=== PATIENT | male | born 1940 | race Caucasian/White ===

== ENCOUNTER 2022-01-27 08:53 | Outpatient (CLI) | payer MEDICARE ==
[2022-01-27 10:29] LABS: ALBUMIN 4.3 g/dL (3.2-5.5); ALBUMIN/GLOBULIN RATIO 1.2 (1.0-2.2); BILIRUBIN,TOTAL 1.1 mg/dL (0.2-1.0); CALCIUM 9.3 mg/dL (8.5-10.3); CREATININE 0.9 mg/dL (0.6-1.2); POTASSIUM 4.4 mmol/L (3.5-5.0); TOTAL PROTEIN 7.8 g/dL (6.7-8.2)
== END 2022-01-27 08:54 | disposition home or self-care (01) ==
LOC: LAB 08:53
PROVIDERS: ATTEND Family Medicine
DX: E78.2 Mixed hyperlipidemia (principal); Z13.1 Encounter for screening for diabetes mellitus
CPT/HCPCS: 36415; 80053

== ENCOUNTER 2022-12-29 08:00 | Outpatient (CLI) | payer MEDICARE, OTHER ==
--- NOTE | 2022-12-29 11:32 | XRAY Report ---
PROCEDURE: Wrist 4 View RT INDICATIONS: RIGHT WRIST FRACTURE HAMATE TECHNIQUE: 3 views of the wrist were acquired. COMPARISON: 11/09/2022 FINDINGS: Bones: Small chip avulsion fracture at the base of the fifth metacarpal has healed with bridging destiney cody. Styloid unremarkable. Degenerative changes noted first carpal metacarpal joint Soft tissues: No suspicious soft tissue calcifications or masses. IMPRESSION: Healed avulsion fracture, base of the fifth metacarpal Reviewed by: Jackson Aleman MD on 12/29/2022 10:31 AM CHEMO Approved by: Jackson Aleman MD on 12/29/2022 10:31 AM CHEMO Station ID: [id number]
== END 2022-12-29 23:59 | disposition home or self-care (01) ==
LOC: DI.WOS 08:00
PROVIDERS: ATTEND Orthopaedic Surgery
DX: Z09 Encounter for follow-up examination after completed treatment for conditions other than malignant neoplasm (principal); Z87.81 Personal history of (healed) traumatic fracture